=== PATIENT | male | born 1955 | race American Indian/Alaskan Native ===

== ENCOUNTER 2019-08-08 07:26 | Emergency (ER) | payer SELFPAY ==
--- NOTE | 2019-08-08 07:52 | Emergency Department Report ---
ED Back Pain/Injury HPI - General Chief Complaint: Back Pain/Injury Stated Complaint: BACK PAIN Time Seen by Provider: 08/08/19 07:39 Source: patient Limitations: No Limitations - History of Present Illness Initial Comments: 64 yo comes in with low back strain after working earlier in the week. He hurt his back twisting. It has improved with otc meds. no incontinence. no saddle parasthesia. ambulatory. Pain ache and 1/10 at this time. no fever/chills/ dysuria/hematuria/abd pain/n/v/diarrhea - Related Data Allergies Allergy/AdvReac Type Severity Reaction Status Date / Time No Known Allergies Allergy Unverified 08/08/19 07:28 ED Review of Systems ROS: Stated complaint: BACK PAIN Other details as noted in HPI Comment: All other systems reviewed and negative ED Past Medical Hx - Past Medical History Medical history: no medical history Surgical history: no surgical history ED Back Pain Physical Exam - Exam General: Vital signs noted. No distress. Alert and acting appropriately. Back/Abdomen: No Abdominal Tenderness, No Perithoracic Tenderness, No Perilumbar Tenderness, No Sacroiliac Tenderness, No Flank Tenderness, No Straight Leg Raise Pain Neuro: Yes Normal Sensation, Yes Normal DTR's, Yes Normal Gait, No Motor Weakness ED Course Vital Signs 08/08/19 07:32 Temperature 97.9 F Pulse Rate 87 Respiratory 16 Rate Blood Pressure 109/65 O2 Sat by Pulse 96 Oximetry ED Medical Decision Making - Medical Decision Making exam wnl neuro intact no spine tenderness no trauma consistent with muscle pain- worse with movement and improved with rest. no indication for xray no dysuria/hematuria pt educated on back care. dc home with dc plan of care. Vital Signs 08/08/19 07:32 Temperature 97.9 F Pulse Rate 87 Respiratory 16 Rate Blood Pressure 109/65 O2 Sat by Pulse 96 Oximetry - Differential Diagnosis soft tissue injury/k. stone Critical care attestation.: If time is entered above; I have spent that time in minutes in the direct care of this critically ill patient, excluding procedure time. ED Disposition Clinical Impression: Lumbar strain, Musculoskeletal back pain Disposition: DC-01 TO HOME OR SELFCARE Is pt being admited?: No Does the pt Need Aspirin: No Condition: Stable Instructions: Muscle Strain (ED) Referrals: MANDY ANGELES MD [Staff Physician] - 3-5 Days Forms: Work/School Release Form(ED) Time of Disposition: 07:51
[2019-08-08 08:24] VITALS: BP 110/70
== END 2019-08-08 07:52 | disposition home or self-care (01) ==
LOC: ED 07:26
DX: S39.012A Strain of muscle, fascia and tendon of lower back, initial encounter (principal); X58.XXXA Exposure to other specified factors, initial encounter; Y93.89 Activity, other specified; Y92.89 Other specified places as the place of occurrence of the external cause; Y99.8 Other external cause status
CPT/HCPCS: 99282